=== PATIENT | female | born 1960 | race Caucasian/White ===

== ENCOUNTER → 2017-11-12 14:55 | Outpatient (CLI) | payer MEDICAID, SELFPAY ==
--- NOTE | 2017-11-12 15:19 | XR_ITS ---
XR shoulder LT min 2V HISTORY: ITS.REASON: LEFT SHOULDER PAIN ORDERING PHYSICIAN: Deepali Mojica PATIENT AGE: 57 years COMPARISON: None FINDINGS: There are mild osteoarthritic changes of the glenohumeral joint. No fracture or dislocation. No significant subacromial stenosis. No lytic or blastic change. IMPRESSION: Mild osteoarthritis of the left shoulder
--- NOTE | 2017-11-12 15:19 | XR_ITS ---
XR knee RT 3V HISTORY: Right knee pain ITS.REASON: KIM KNEE PAIN ORDERING PHYSICIAN: Deepali Mojica PATIENT AGE: 57 years COMPARISON: None FINDINGS: There is very slight decrease in the joint space medially and minimal spurring at the posterior patella. There is increased density in suprapatellar region consistent with knee joint effusion. No fracture or dislocation. No lytic or blastic change. IMPRESSION: Minimal osteoarthritic changes with suprapatellar effusion
--- NOTE | 2017-11-12 15:19 | XR_ITS ---
XR ankle RT min 3V HISTORY: ITS.REASON: RT ANKLE PAIN ORDERING PHYSICIAN: Deepali Mojica PATIENT AGE: 57 years COMPARISON: None FINDINGS: No fracture or dislocation. No lytic or blastic change. There is normal mineralization.. The joint spaces are well-preserved. No significant degenerative/arthritic changes. No erosive changes evident. IMPRESSION: Negative right ankle, no acute finding
--- NOTE | 2017-11-12 15:19 | XR_ITS ---
XR knee LT 3V HISTORY: Left knee pain ITS.REASON: KIM KNEE PAIN ORDERING PHYSICIAN: Deepali Mojica PATIENT AGE: 57 years COMPARISON: 07/20/2017 FINDINGS: No fracture or dislocation. No lytic or blastic change. Normal mineralization. No significant arthritic changes evident. No other significant findings. The small bowel now involving the distal femur IMPRESSION: Negative left Knee
--- NOTE | 2017-11-12 15:19 | XR_ITS ---
EXAM: XR lumbar spine min 4V HISTORY: ITS.REASON: LOW BACK PAIN ORDERING PHYSICIAN: Deepali Mojica PATIENT AGE: 57 years COMPARISON: None FINDINGS: Normal alignment. No fracture or dislocation. There are small anterior osteophytes at L2, L3, L4, and L5. The disc spaces are fairly well preserved except for slight decrease in the disc space at L5-S1. Mild facet hypertrophic changes are present at the lumbosacral junction. Multiple pelvic calcifications are present consistent with phleboliths. IMPRESSION: 1. No acute finding. 2. Mild lumbar spondylosis with osteophytosis and mild degenerative disc disease at L5-S1 with mild facet arthritic change
[2017-11-12 16:14] LABS: Alanine Aminotransferase 18 U/L (12-78); Albumin Level 3.1 gm/dL (3.4-5.0); Albumin/Globulin Ratio 0.7 (1.1-1.8); Alkaline Phosphatase 233 U/L (46-116); Aspartate Amino Transferase 18 U/L (15-37); Bilirubin,Total 0.2 mg/dL (0.2-1.0); Blood Urea Nitrogen 11 mg/dL (7-18); Calcium 8.8 mg/dL (8.5-10.1); Carbon Dioxide 35 mmol/L (21.0-32.0); Chloride 102 mmol/L (98-107); Chol/HDL Ratio 2.9 (1-3.5); Cholesterol 153 mg/dL (140-200); Creatinine,Serum 0.96 mg/dL (0.55-1.02); Estimated Glomerular Filt Rate 59 ml/min (>60); GFR (African American) 72 ML/MIN (>60); Globulin 4.4 gm/dl (1.3-3.2); Glucose 92 mg/dL (74-106); HDL Cholesterol 52 mg/dL (29-89); LDL Cholesterol 82 mg/dL (0-130); Sodium 140 mmol/L (136-145); Total Protein,Serum 7.5 gm/dL (6.4-8.2); Triglycerides 97 mg/dL (30-200); VLDL Cholesterol 19 mg/dL (0-40)
== END ==
PROVIDERS: Visit Provider Nurse Practitioner Family
DX: E11.9 Type 2 diabetes mellitus without complications (principal); M25.561 Pain in right knee; M25.562 Pain in left knee; M25.512 Pain in left shoulder; M25.571 Pain in right ankle and joints of right foot; M54.5 Low back pain
CPT/HCPCS: 36415; 72110; 73030; 73562; 73610; 80053; 80061; 83036

== ENCOUNTER → 2018-01-06 12:52 | Outpatient (CLI) | payer MEDICAID, SELFPAY ==
--- NOTE | 2018-01-06 12:55 | MR_ITS ---
MR knee RT wo con HISTORY: Right knee pain medial and lateral ITS.REASON: PAIN IN RIGHT KNEE, INJURY OF RIGHT KNEE ORDERING PHYSICIAN: Daren Sow MD PATIENT AGE: 57 years Comparison: 11/02/2017 TECHNIQUE: Standard multiplanar multiecho sequences are performed without contrast. FINDINGS: The cruciate ligaments are intact. The collateral ligaments, patellar tendon, and quadriceps tendon are intact. Grade 2 signal intensity involves the posterior horn of the medial meniscus and anterior horn of the lateral meniscus. No definite meniscal tear however is evident. There is thinning of the patellar cartilage with areas of decreased T1 and increased T2 signal in the subchondral region of the patella centrally and superiorly. There is a small knee joint effusion. There is also a cyst somewhat wedge-shaped area of abnormal signal intensity involving the lateral femoral condyle hypointense on T1 and hyperintense on T2. Measuring approximately 2.8 cm AP and 2.3 cm transverse with more extensive hypointensity in subchondral region posteriorly. There is mottled decrease in T1 signal and increased T2 signal involving the distal femur and proximal tibia consistent with red marrow replacement. IMPRESSION: 1. No evidence of internal derangement. 2. 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 Abnormal signal intensity of the lateral femoral condyle consistent with bone marrow edema. There may be some early osteochondritis at the subchondral region.
== END ==
PROVIDERS: Family Provider Internal Medicine Adolescent Medicine; PCP Internal Medicine Adolescent Medicine; Visit Provider Internal Medicine Adolescent Medicine
DX: M25.561 Pain in right knee (principal); S89.91XD Unspecified injury of right lower leg, subsequent encounter
CPT/HCPCS: 73721

== ENCOUNTER → 2018-07-23 15:03 | Outpatient (CLI) | payer MEDICAID, SELFPAY ==
[2018-07-23 15:59] LABS: Albumin Level 3.4 gm/dL (3.4-5.0); Blood Urea Nitrogen 8 mg/dL (7-18); Calcium 8.5 mg/dL (8.5-10.1); Chloride 97 mmol/L (98-107); Potassium 4.4 mmoL/L (3.5-5.1); Sodium 135 mmol/L (136-145)
[2018-07-23 16:09] LABS: Alanine Aminotransferase 23 U/L (12-78); Albumin/Globulin Ratio 0.8 (1.1-1.8); Alkaline Phosphatase 233 U/L (46-116); Anion Gap 15.4 mEq/L (5-15); Aspartate Amino Transferase 15 U/L (15-37); Bilirubin,Total 0.2 mg/dL (0.2-1.0); Carbon Dioxide 27 mmol/L (21.0-32.0); Chol/HDL Ratio 5.7 (1-3.5); Cholesterol 317 mg/dL (140-200); Creatinine,Serum 0.98 mg/dL (0.55-1.02); Estimated Glomerular Filt Rate 58 ml/min (>60); GFR (African American) 70 ML/MIN (>60); Globulin 4.2 gm/dl (1.3-3.2); Glucose 112 mg/dL (74-106); HDL Cholesterol 56 mg/dL (29-89); LDL Cholesterol 219 mg/dL (0-130); Total Protein,Serum 7.6 gm/dL (6.4-8.2); Triglycerides 208 mg/dL (30-200); VLDL Cholesterol 42 mg/dL (0-40)
[2018-07-23 16:42] LABS: Basophils # 0.1 K/mm3 (0-0.2); Basophils % 0.7 % (0.1-2.0); Eosinophils # 0.1 K/mm3 (0.0-0.4); Eosinophils % 0.7 % (0.1-12.0); Hematocrit 41.6 % (37.0-47.0); Hemoglobin 12.8 g/dL (12.2-16.2); Mean Corpuscular HGB Conc 30.7 g/dL (31.8-35.4); Mean Corpuscular Hemoglobin 25.9 pg (27.0-31.2); Mean Corpuscular Volume 84.6 fl (81-99); Mean Platelet Volume 7.1 fl (7.4-10.4); Monocytes # 0.3 K/mm3 (0.1-1.0); Monocytes % 3.5 % (1.7-9.3); Neutrophils # 5.3 K/mm3 (1.8-7.8); Platelet Count 512 K/mm3 (142-424); Red Blood Count 4.92 M/mm3 (4.20-5.40); White Blood Count 8.8 K/mm3 (4.8-10.8)
== END ==
PROVIDERS: Visit Provider Internal Medicine Adolescent Medicine
DX: E78.5 Hyperlipidemia, unspecified (principal); E11.9 Type 2 diabetes mellitus without complications
CPT/HCPCS: 36415; 80053; 80061; 85025

== ENCOUNTER 2018-12-28 16:28 | Outpatient (RCR) | payer MEDICAID, SELFPAY | END 2018-12-28 16:35 | disposition home or self-care (01) | LOC: PT 16:28 | PROVIDERS: Visit Provider Internal Medicine Adolescent Medicine | DX: M65.319 Trigger thumb, unspecified thumb (principal) ==

== ENCOUNTER → 2019-01-31 13:46 | Outpatient (CLI) | payer MEDICAID, SELFPAY ==
[2019-01-31 15:25] LABS: Hemoglobin A1C 6.5 % (0.0-7.0)
== END ==
PROVIDERS: Visit Provider Internal Medicine Adolescent Medicine
DX: E78.5 Hyperlipidemia, unspecified (principal); E11.9 Type 2 diabetes mellitus without complications
CPT/HCPCS: 36415; 83036

== ENCOUNTER → 2019-03-04 14:23 | Outpatient (CLI) | payer MEDICAID, SELFPAY ==
--- NOTE | 2019-03-04 14:29 | XR_ITS ---
XR knee RT 4V HISTORY: ITS.REASON: right knee pain ORDERING PHYSICIAN: Leona Kirkland MD PATIENT AGE: 58 years COMPARISON: 12/21/2018 FINDINGS: There are minimal osteoarthritic changes involving all 3 compartments. No fracture or dislocation. No lytic or blastic change. IMPRESSION: Minimal osteoarthritis
--- NOTE | 2019-03-04 14:29 | XR_ITS ---
XR knee LT 4V HISTORY: ITS.REASON: left knee pain ORDERING PHYSICIAN: Leona Kirkland MD PATIENT AGE: 58 years COMPARISON: None FINDINGS: There is slight decrease in the joint space medially and laterally with minimal osteophyte formation of the lateral aspect of the patella. No fracture or dislocation. No lytic or blastic change. Bone island is noted in the distal femur. Soft tissue calcification is present in the medial aspect of the left calf. IMPRESSION: Mild osteoarthritic change
== END ==
PROVIDERS: PCP Internal Medicine Adolescent Medicine; Visit Provider Orthopaedic Surgery
DX: M25.562 Pain in left knee (principal); M25.561 Pain in right knee
CPT/HCPCS: 73564

== ENCOUNTER → 2019-05-30 16:02 | Outpatient (CLI) | payer OTHER, SELFPAY ==
[2019-05-30 16:19] LABS: Basophils # 0.1 K/mm3 (0-0.2); Basophils % 0.6 % (0.1-2.0); Eosinophils # 0.1 K/mm3 (0.0-0.4); Eosinophils % 0.9 % (0.1-12.0); Hematocrit 41.4 % (37.0-47.0); Hemoglobin 12.3 g/dL (12.2-16.2); Lymphocytes # 2.8 K/mm3 (0.7-4.5); Lymphocytes % 25.1 % (10-50); Mean Corpuscular HGB Conc 29.7 g/dL (31.8-35.4); Mean Corpuscular Hemoglobin 27.2 pg (27.0-31.2); Mean Corpuscular Volume 91.6 fl (81-99); Mean Platelet Volume 7.1 fl (7.4-10.4); Monocytes # 0.4 K/mm3 (0.1-1.0); Monocytes % 3.8 % (1.7-9.3); Neutrophils # 7.7 K/mm3 (1.8-7.8); Neutrophils % 69.6 % (37.0-80.0); Platelet Count 501 K/mm3 (142-424); Red Blood Count 4.52 M/mm3 (4.20-5.40); Red Cell Distribution Width 17.2 % (11.5-17.5)
[2019-05-30 17:38] LABS: Hemoglobin A1C 5.9 % (0.0-7.0)
[2019-05-30 18:39] LABS: Alanine Aminotransferase 18 U/L (12-78); Albumin Level 3.4 gm/dL (3.4-5.0); Albumin/Globulin Ratio 0.9 (1.1-1.8); Alkaline Phosphatase 162 U/L (46-116); Anion Gap 14.6 mEq/L (5-15); Aspartate Amino Transferase 14 U/L (15-37); Bilirubin,Total 0.3 mg/dL (0.2-1.0); Blood Urea Nitrogen 11 mg/dL (7-18); Calcium 8.6 mg/dL (8.5-10.1); Carbon Dioxide 28 mmol/L (21.0-32.0); Chloride 98 mmol/L (98-107); Chol/HDL Ratio 3.5 (1-3.5); Cholesterol 223 mg/dL (140-200); Creatinine,Serum 0.93 mg/dL (0.55-1.02); Estimated Glomerular Filt Rate 61 ml/min (>60); GFR (African American) 74 ML/MIN (>60); Globulin 3.6 gm/dl (1.3-3.2); Glucose 103 mg/dL (74-106); HDL Cholesterol 63 mg/dL (29-89); LDL Cholesterol 131 mg/dL (0-130); Potassium 4.6 mmoL/L (3.5-5.1); Sodium 136 mmol/L (136-145); Thyroid Stimulating Hormone 1.04 uIU/ml (0.358-3.740); Triglycerides 147 mg/dL (30-200); VLDL Cholesterol 29 mg/dL (0-40)
== END ==
PROVIDERS: Visit Provider Internal Medicine Adolescent Medicine
DX: E78.5 Hyperlipidemia, unspecified (principal); E11.9 Type 2 diabetes mellitus without complications; Z79.84 Long term (current) use of oral hypoglycemic drugs
CPT/HCPCS: 36415; 80053; 80061; 83036; 84443; 85025

== ENCOUNTER 2019-09-16 12:43 | Outpatient (RCR) | payer OTHER, SELFPAY | END 2019-09-16 13:15 | disposition home or self-care (01) | LOC: OT 12:43 | PROVIDERS: Visit Provider Internal Medicine Adolescent Medicine | DX: M25.532 Pain in left wrist (principal) | CPT/HCPCS: 97763 ==

== ENCOUNTER → 2019-09-16 13:14 | Outpatient (CLI) | payer OTHER, SELFPAY ==
--- NOTE | 2019-09-16 13:20 | XR_ITS ---
PROCEDURE: XR ANKLE LT MIN 3V CLINICAL INDICATION: LT ANKLE PAIN COMPARISON: No exams were available for comparison FINDINGS: No fracture, dislocation, lytic change, or blastic change evident. No significant degenerative change IMPRESSION: No acute findings. Dictated by: Tony Jaeger MD 09/16/2019 17:06 Electronically signed by Tony Jaeger MD in [facility] 09/16/2019 17:06
--- NOTE | 2019-09-16 13:21 | XR_ITS ---
PROCEDURE: XR KNEE LT 4V CLINICAL INDICATION: Knee pain Knee pain and swelling COMPARISON: [id number] XR knee LT 3V from 11/12/2017 [id number] XR knee RT 3V from 11/12/2017 [id number] XR knee RT 3V from 12/21/2018 [id number] XR knee LT 3V from 12/21/2018 FINDINGS: No fracture or dislocation. No lytic or blastic change. There is normal mineralization. There are mild osteoarthritic changes the patellofemoral joint. Other findings:Bone islands are present in the distal femur IMPRESSION: Minimal osteoarthritic change patellofemoral Dictated by: Tony Jaeger MD 09/16/2019 17:06 Electronically signed by Tony Jaeger MD in [facility] 09/16/2019 17:06
--- NOTE | 2019-09-16 13:21 | XR_ITS ---
PROCEDURE: XR FOOT WT BEARING RT 3V CLINICAL INDICATION: pain COMPARISON: No exams were available for comparison FINDINGS: There are minimal hypertrophic changes at the distal aspect of the 1st metatarsal. No fracture or dislocation. No lytic or blastic change. Normal alignment. IMPRESSION: Minimal hypertrophic changes distal 1st metatarsal otherwise negative Dictated by: Tony Jaeger MD 09/16/2019 14:06 Electronically signed by Tony Jaeger MD in [facility] 09/16/2019 14:06
--- NOTE | 2019-09-16 13:21 | XR_ITS ---
PROCEDURE: XR FOOT WT BEARING LT 3V CLINICAL INDICATION: pain COMPARISON: No exams were available for comparison FINDINGS: No fracture or dislocation. No lytic or blastic change. There is normal mineralization. The joint spaces are well-preserved. No significant degenerative/arthritic changes. No erosive changes evident. Other findings:None. IMPRESSION: No acute findings. Dictated by: Tony Jaeger MD 09/16/2019 14:05 Electronically signed by Tony Jaeger MD in [facility] 09/16/2019 14:06
== END ==
PROVIDERS: PCP Internal Medicine Adolescent Medicine; Referring Provider Orthopaedic Surgery; Visit Provider Podiatrist
DX: M17.12 Unilateral primary osteoarthritis, left knee (principal); M79.672 Pain in left foot; M25.572 Pain in left ankle and joints of left foot; M79.671 Pain in right foot
CPT/HCPCS: 73564; 73610; 73630

== ENCOUNTER → 2019-10-21 10:55 | Outpatient (CLI) | payer OTHER, SELFPAY ==
--- NOTE | 2019-10-21 10:56 | MR_ITS ---
PROCEDURE: MR KNEE LT WO CON CLINICAL INDICATION: knee pain Left knee pain and instability with limited range of motion the COMPARISON: XR KNEE LT 4V from 09/16/2019 TECHNIQUE: Routine multiplanar multi echo sequences are performed without gadolinium enhancement. FINDINGS: The cruciate ligaments, collateral ligaments, quadriceps tendon, and patellar tendon are intact. The no evidence of meniscal tear. There is prominent thinning of the patellar cartilage. Decreased T1 and increased T2 signal is present within the central aspect of the patella extending from posterior to anterior in and oblique inferior direction. This may be related to osteochondrosis/osteochondritis. There is only minimal amount of fluid present in the knee joint. There is slight decrease in the joint space medially and laterally and at the patellofemoral joint with some minimal spurring along the intercondylar notch of the femur. IMPRESSION: 1. Osteoarthritic changes with chondromalacia patella with abnormal signal intensity of the patella which could be related to osteochondrosis/osteochondritis. 2. No evidence of internal derangement Dictated by: Tony Jaeger MD 10/22/2019 08:43 Electronically signed by Tony Jaeger MD in [facility] 10/22/2019 08:43
[2019-10-21 13:01] LABS: Basophils # 0.1 K/mm3 (0-0.2); Basophils % 0.8 % (0.1-2.0); Eosinophils # 0.1 K/mm3 (0.0-0.4); Eosinophils % 1.3 % (0.1-12.0); Hematocrit 39.4 % (37.0-47.0); Hemoglobin 12.9 g/dL (12.2-16.2); Lymphocytes # 2.5 K/mm3 (0.7-4.5); Lymphocytes % 26.7 % (10-50); Mean Corpuscular HGB Conc 32.8 g/dL (31.8-35.4); Mean Corpuscular Volume 88.5 fl (81-99); Mean Platelet Volume 7.1 fl (7.4-10.4); Monocytes # 0.3 K/mm3 (0.1-1.0); Monocytes % 3.2 % (1.7-9.3); Neutrophils # 6.4 K/mm3 (1.8-7.8); Platelet Count 442 K/mm3 (142-424); Red Blood Count 4.45 M/mm3 (4.20-5.40); White Blood Count 9.4 K/mm3 (4.8-10.8)
[2019-10-21 15:10] LABS: Alanine Aminotransferase 14 U/L (12-78); Albumin Level 3.6 g/dl (3.5-5.0); Albumin/Globulin Ratio 1.3 (1.1-1.8); Alkaline Phosphatase 140 U/L (38-126); Anion Gap 9.7 mEq/L (5-15); Aspartate Amino Transferase 20 U/L (14-36); Bilirubin,Total 0.2 mg/dl (0.2-1.3); Blood Urea Nitrogen 10 mg/dl (7-17); Calcium 9.1 mg/dl (8.4-10.2); Carbon Dioxide 29 mmol/L (22.0-30.0); Chloride 99 mmol/L (98-107); Chol/HDL Ratio 3.5 (1-3.5); Cholesterol 187 mg/dl (140-200); Estimated Glomerular Filt Rate 73 ml/min (>60); GFR (African American) 88 ML/MIN (>60); Globulin 2.7 g/dL (1.3-3.2); Glucose 97 mg/dl (74-100); HDL Cholesterol 53 mg/dl (40-60); Potassium 4.7 mmoL/L (3.5-5.1); Sodium 133 mmol/L (136-145); Total Protein,Serum 6.3 g/dl (6.3-8.2); Triglycerides 140 mg/dl (30-150); VLDL Cholesterol 28 mg/dL (0-40)
[2019-10-21 15:21] LABS: Direct LDL Cholesterol 101.12 mg/dL (100-129)
[2019-10-21 15:38] LABS: Thyroid Stimulating Hormone 0.55 uIU/mL (0.465-4.68)
[2019-10-21 16:30] LABS: Hemoglobin A1C 5.9 % (4.0-6.0)
== END ==
PROVIDERS: PCP Internal Medicine Adolescent Medicine; Visit Provider Orthopaedic Surgery
DX: M17.12 Unilateral primary osteoarthritis, left knee (principal)
CPT/HCPCS: 36415; 73721; 80053; 80061; 83036; 84443; 85025

== ENCOUNTER 2020-04-11 19:18 | Emergency (ER) | payer OTHER, SELFPAY ==
[2020-04-11 19:18] VITALS: BP 104/69; PULSE 66; RESP 16; TEMP 36.7; O2SAT 96; BMI 32.9
--- NOTE | 2020-04-11 19:36 | CT_ITS ---
PROCEDURE: CT ABDOMEN PELVIS WO CON CLINICAL INDICATION: LLQ pain and constipation COMPARISON: [facility]/O MRI-L-SPINE W/O from 12/09/2016 TECHNIQUE: Axial images obtained with sagittal and coronal reformats. All CT scans at the facility use one or more dose reduction, viz: automated exposure control, ma/kV adjustment per patient size (including targeted exams where dose is matched to indication, i.e. head), or iterative reconstruction technique. FINDINGS: LOWER THORAX: There is a nodular density along the right lung base measuring 7 mm. This is nonspecific and lies along the hemidiaphragm. There are minimal atelectatic changes in the lung bases. ABDOMEN & PELVIS: The liver, spleen adrenal glands, and pancreas have an unremarkable appearance. There are gallstones present. There are 2 nonobstructing left renal calculi along the lower pole of the left kidney measuring 2 and 3 mm. No intestinal obstruction or free air. No evidence of appendicitis. There is a mild amount of retained colonic feces. Small umbilical hernia containing fat. There is increased density involving the L2 vertebral body along its lower and left aspect which may represent a hemangioma. This is of undetermined significance. There are few bone islands within the pelvis and hips. IMPRESSION: 1. Cholelithiasis. 2. Nonobstructing left nephrolithiasis. 3. Constipation. 4. Nonspecific 7 mm flat like nodular density in the right lower lobe. Consider six-month follow-up to confirm stability Dictated by: Tony Jaeger MD 04/12/2020 05:11 Tony Jaeger MD in [place] 04/12/2020 05:11
--- NOTE | 2020-04-11 19:45 | HMH.EDGENADL ---
ED Disposition Clinical Impression: Constipation Qualifiers: Constipation type: unspecified constipation type Qualified Code(s): K59.00 - Constipation, unspecified Disposition: Home, Self-Care Condition on Discharge: Good Instructions: Acute Abdominal Pain Prescriptions: Sodium Phosphate,Throckmorton-Dibasic [Enema Ready To Use] 266 ml RC ONCE #1 enema Prescription Printed Magnesium Citrate [Magnesium Citrate 10oz Bottle] 10 ml PO ONCE #1 solution Prescription Printed Referrals: Radames Mena MD [Primary Care Provider] - - Critical Care Critical Care Time: No Attestation: On 04/11/20, the high probability of a clinically significant, sudden or life threatening deterioration of the following system(s) required my full and direct attention, intervention and personal management. The time I documented below is in addition to time spent performing reported procedures but includes the following listed in this critical care notation. Medical Decision Making - Nadeem Inquiry Pt receiving controlled substance: No Vital Signs: 04/11/20 19:18 04/11/20 20:11 04/11/20 20:32 Temperature 98.0 F Temperature Source Oral Pulse Rate [Left Radial] 66 77 70 Respiratory Rate 16 18 18 Blood Pressure [Right Arm] 104/69 L 109/64 L 117/78 Blood Pressure Mean [Right Arm] 80 79 91 Blood Pressure Source [Right Arm] Automatic Cuff Blood Pressure Position [Right Arm] Sitting 02 Sat by Pulse Oximetry 96 98 95 Oxygen Delivery Method Room Air Room Air - Lab Data Lab Results 04/11/20 19:45: Amylase 63 04/11/20 19:45: WBC 10.4, RBC 4.98, Hgb 14.4, Hct 43.3, MCV 86.9, MCH 28.8, MCHC 33.1, RDW 15.6, Plt Count 401, MPV 8.0, Neut % (Auto) 68.2, Lymph % (Auto) 27.0, Throckmorton % (Auto) 3.2, Eos % (Auto) 1.0, Baso % (Auto) 0.5, Neut # (Auto) 7.1, Lymph # (Auto) 2.8, Throckmorton # (Auto) 0.3, Eos # (Auto) 0.1, Baso # (Auto) 0.1 04/11/20 19:45: Sodium 139, Potassium 3.6, Chloride 102, Carbon Dioxide 30, Anion Gap 10.6, BUN 11, Creatinine 1.00, Estimated Creat Clear 76, Estimated GFR 56 L, Est GFR ( Amer) 68, Glucose 135 H, Calcium 9.5, Total Bilirubin 0.3, AST 32, ALT 21, Alkaline Phosphatase 145 H, Total Protein 7.5, Albumin 4.1, Globulin 3.4 H, Albumin/Globulin Ratio 1.2, Lipase 82 Result diagrams: 04/11/20 19:45 04/11/20 19:45 Orders (Tests/Meds): ED MEDICATIONS Generic Name Dose Route Start Last Admin Trade Name Freq PRN Reason Stop Dose Admin Sodium Chloride 1,000 mls @ 999 mls/hr 04/11/20 19:45 04/11/20 19:42 Sod Chlor 0.9% 1000ml Bag IV 04/11/20 20:45 999 mls/hr .Q1H1M JORGE Administration Discontinued Medications Generic Name Dose Route Start Last Admin Trade Name Freq PRN Reason Stop Dose Admin Ketorolac Tromethamine 30 mg 04/11/20 20:05 04/11/20 20:07 Toradol 30mg/Ml Vial IV 04/11/20 20:06 30 mg ONCE ONE Administration Ondansetron HCl 4 mg 04/11/20 19:39 04/11/20 19:42 Zofran 4mg/2ml Vial IV 04/11/20 19:40 4 mg ONCE ONE Administration ORDERS Category Date Time Status CT abdomen pelvis wo con Stat Cat Scan 04/11/20 19:36 Taken Urinalysis and Microscopic Stat Lab 04/11/20 19:36 Ordered Medical Decision Narrative: In summary patient presents for obstipation. Patient has had history of abdominal surgeries, risk of adhesions causing small bowel obstruction is high. Patient is also on significant amount of medications which may cause stroke paresis. Patient does have focal abdominal tenderness to palpation right lower quadrant, appendicitis is also possibility. Patient had basic labs drawn, CBC, CMP, lipase, was given 1 L fluids, CT scan with IV contrast was ordered. On repeat assessment, patient CT scan significant for constipation, patient did not want intervention performed in the ER, patient requesting enema prescription at discharge. Patient reported normal exam significantly improved. Patient labs nonactionable. Patient discharged home, follow-up with primary care doctor
[2020-04-11 19:54] LABS: Basophils # 0.1 K/mm3 (0-0.2); Basophils % 0.5 % (0.1-2.0); Eosinophils # 0.1 K/mm3 (0.0-0.4); Hematocrit 43.3 % (37.0-47.0); Hemoglobin 14.4 g/dL (12.2-16.2); Lymphocytes # 2.8 K/mm3 (0.7-4.5); Mean Corpuscular HGB Conc 33.1 g/dL (31.8-35.4); Mean Corpuscular Hemoglobin 28.8 pg (27.0-31.2); Mean Corpuscular Volume 86.9 fl (81-99); Monocytes # 0.3 K/mm3 (0.1-1.0); Monocytes % 3.2 % (1.7-9.3); Neutrophils # 7.1 K/mm3 (1.8-7.8); Neutrophils % 68.2 % (37.0-80.0); Platelet Count 401 K/mm3 (142-424); Red Blood Count 4.98 M/mm3 (4.20-5.40); Red Cell Distribution Width 15.6 % (11.5-17.5); White Blood Count 10.4 K/mm3 (4.8-10.8)
[2020-04-11 20:02] LABS: Amylase 63 U/L (30-110)
[2020-04-11 20:11] VITALS: BP 109/64; PULSE 77; RESP 18; O2SAT 98
[2020-04-11 20:12] LABS: Chloride 102 mmol/L (98-107); Potassium 3.6 mmoL/L (3.5-5.1); Sodium 139 mmol/L (136-145)
[2020-04-11 20:15] LABS: Alanine Aminotransferase 21 U/L (12-78); Albumin Level 4.1 g/dl (3.5-5.0); Albumin/Globulin Ratio 1.2 (1.1-1.8); Alkaline Phosphatase 145 U/L (38-126); Anion Gap 10.6 mEq/L (5-15); Aspartate Amino Transferase 32 U/L (14-36); Bilirubin,Total 0.3 mg/dl (0.2-1.3); Blood Urea Nitrogen 11 mg/dl (7-17); Calcium 9.5 mg/dl (8.4-10.2); Carbon Dioxide 30 mmol/L (22.0-30.0); Creatinine Clearance Estimated 76 mL/min (50-200); Estimated Glomerular Filt Rate 56 ml/min (>60); GFR (African American) 68 ML/MIN (>60); Globulin 3.4 g/dL (1.3-3.2); Glucose 135 mg/dl (74-100); Lipase 82 U/L (23-300); Total Protein,Serum 7.5 g/dl (6.3-8.2)
[2020-04-11 20:32] VITALS: BP 117/78; PULSE 70; RESP 18; O2SAT 95
[2020-04-11 21:58] VITALS: BP 118/76; PULSE 72; RESP 14; TEMP 36.7; O2SAT 97
== END 2020-04-11 22:00 | disposition home or self-care (01) ==
PROVIDERS: Emergency Provider Emergency Medicine; PCP Internal Medicine Adolescent Medicine
DX: K59.00 Constipation, unspecified (principal); E11.9 Type 2 diabetes mellitus without complications; E78.5 Hyperlipidemia, unspecified; M79.7 Fibromyalgia; F17.210 Nicotine dependence, cigarettes, uncomplicated; Z88.8 Allergy status to other drugs, medicaments and biological substances; Z79.899 Other long term (current) drug therapy
CPT/HCPCS: 74176; 80053; 82150; 83690; 85025; 96365; 96375; 99283; J2405

== ENCOUNTER → 2020-04-30 13:30 | Outpatient (CLI) | payer OTHER, SELFPAY ==
--- NOTE | 2020-04-30 13:35 | XR_ITS ---
PROCEDURE: XR ELBOW RT MIN 3V CLINICAL INDICATION: R ELBOW PAIN COMPARISON: No exams were available for comparison FINDINGS: No obvious fracture or dislocation. Osteoarthritic changes are present at the elbow joint. No displaced fat pad. Bony hypertrophy is present at the radial neck and coracoid process. Other findings:None. IMPRESSION: No acute fracture. Osteoarthritis Dictated by: Tony Jaeger MD 04/30/2020 14:05 Tony Jaeger MD in [place] 04/30/2020 14:05
== END ==
PROVIDERS: PCP Internal Medicine Adolescent Medicine; Visit Provider Internal Medicine Adolescent Medicine
DX: M25.521 Pain in right elbow (principal)
CPT/HCPCS: 73080

== ENCOUNTER 2021-05-28 11:19 | Outpatient (RCR) | payer OTHER, SELFPAY | END 2021-05-28 12:00 | disposition home or self-care (01) | LOC: OT 11:19 | PROVIDERS: Visit Provider Internal Medicine Adolescent Medicine | DX: M79.642 Pain in left hand (principal); M79.641 Pain in right hand | CPT/HCPCS: 97763 ==

== ENCOUNTER → 2021-11-05 12:17 | Outpatient (CLI) | payer OTHER, SELFPAY ==
[2021-11-05 12:43] LABS: Basophils # 0.1 K/mm3 (0-0.2); Basophils % 1.1 % (0.1-2.0); Eosinophils # 0.1 K/mm3 (0.0-0.4); Eosinophils % 1.4 % (0.1-12.0); Hematocrit 42.5 % (37.0-47.0); Hemoglobin 13.5 g/dL (12.2-16.2); Lymphocytes # 3.3 K/mm3 (0.7-4.5); Lymphocytes % 33.7 % (10-50); Mean Corpuscular HGB Conc 31.9 g/dL (31.8-35.4); Mean Corpuscular Hemoglobin 29.3 pg (27.0-31.2); Mean Corpuscular Volume 91.9 fl (81-99); Mean Platelet Volume 7.7 fl (7.4-10.4); Monocytes # 0.4 K/mm3 (0.1-1.0); Monocytes % 3.6 % (1.7-9.3); Neutrophils % 60.2 % (37.0-80.0); Platelet Count 350 K/mm3 (142-424); Red Blood Count 4.62 M/mm3 (4.20-5.40); Red Cell Distribution Width 14.4 % (11.5-17.5); White Blood Count 9.9 K/mm3 (4.8-10.8)
[2021-11-05 12:54] LABS: Hemoglobin A1C 5.9 % (4.0-6.0)
[2021-11-05 13:59] LABS: Alanine Aminotransferase 19 U/L (12-78); Albumin Level 3.9 g/dl (3.5-5.0); Albumin/Globulin Ratio 1.5 (1.1-1.8); Alkaline Phosphatase 135 U/L (38-126); Anion Gap 7.2 mEq/L (5-15); Aspartate Amino Transferase 26 U/L (14-36); Bilirubin,Total 0.4 mg/dl (0.2-1.3); Blood Urea Nitrogen 12 mg/dl (7-17); Calcium 8.5 mg/dl (8.4-10.2); Carbon Dioxide 31 mmol/L (22.0-30.0); Chloride 102 mmol/L (98-107); Estimated Glomerular Filt Rate 63 ml/min (>60); GFR (African American) 77 ML/MIN (>60); Globulin 2.6 g/dL (1.3-3.2); Glucose 117 mg/dl (74-100); Potassium 4.2 mmoL/L (3.5-5.1); Sodium 136 mmol/L (136-145); Total Protein,Serum 6.5 g/dl (6.3-8.2)
== END ==
PROVIDERS: Visit Provider Internal Medicine Adolescent Medicine
DX: E11.9 Type 2 diabetes mellitus without complications (principal); R23.8 Other skin changes; Z79.84 Long term (current) use of oral hypoglycemic drugs
CPT/HCPCS: 36415; 80053; 83036; 85025

== ENCOUNTER → 2022-03-12 10:01 | Outpatient (CLI) | payer OTHER, SELFPAY ==
--- NOTE | 2022-03-12 10:06 | XR_ITS ---
PROCEDURE INFORMATION: Exam: XR Left Hand Exam date and time: 03/12/2022 10:22 AM Age: 61 years old Clinical indication: Pain; Hand; Left; Additional info: Hand pain TECHNIQUE: Imaging protocol: Radiologic exam of the Left hand. Views: 3 or more views. COMPARISON: CR [id number] XR hand LT min 3V 12/21/2018 2:30 PM FINDINGS: Bones/joints: No evidence of acute displaced cortical disruption or dislocation. Diffuse bone demineralization. Osteophytosis and eburnation of the articulating surfaces of the wrist and hand, most notably at the junction of the 1st metacarpal and 1st carpal. Soft tissues: No radiopaque foreign object or localized soft tissue swelling. IMPRESSION: 1. Osteoarthritis. 2. Osteopenia. 3. No acute fracture is identified.
--- NOTE | 2022-03-12 10:06 | XR_ITS ---
PROCEDURE INFORMATION: Exam: XR Right Hand Exam date and time: 03/12/2022 10:22 AM Age: 61 years old Clinical indication: Pain; Hand; Right; Additional info: Hand pain TECHNIQUE: Imaging protocol: Radiologic exam of the Right hand. Views: 3 or more views. COMPARISON: CR XR ELBOW RT MIN 3V 04/30/2020 1:37 PM FINDINGS: Bones/joints: Loss of joint space, osteophytosis and eburnation at the articulating surfaces of the wrist and hand most notably at the junction of the greater multangular and 1st metacarpal. Diffuse bone demineralization. Soft tissues: Normal. IMPRESSION: 1. Osteoarthritis. 2. Osteopenia.
== END ==
PROVIDERS: PCP Internal Medicine Adolescent Medicine; Visit Provider Orthopaedic Surgery
DX: M79.642 Pain in left hand (principal); M79.641 Pain in right hand
CPT/HCPCS: 73130

== ENCOUNTER 2022-10-14 17:50 | Emergency (ER) | payer OTHER, SELFPAY ==
[2022-10-14 18:04] VITALS: BMI 25.6
--- NOTE | 2022-10-14 18:05 | XR_ITS ---
PROCEDURE INFORMATION: Exam: XR Right Elbow Exam date and time: 10/14/2022 6:03 PM Age: 62 years old Clinical indication: Pain; Elbow; Left; Additional info: Injury TECHNIQUE: Imaging protocol: Radiologic exam of the right elbow. Views: 3 or more views. COMPARISON: CR XR ELBOW RT MIN 3V 04/30/2020 1:37 PM FINDINGS: Bones/joints: No visible fracture or dislocation. Moderate degenerative changes of the radiocapitellar joint. No joint effusion Soft tissues: Normal. IMPRESSION: No visible fracture or dislocation.
[2022-10-14 18:20] VITALS: BP 120/87; PULSE 79; RESP 18; TEMP 36.8; O2SAT 95; BMI 28.5
--- NOTE | 2022-10-14 18:43 | EXP.UTC ---
Discharge Plan Disposition Patient Disposition: Home, Self-Care Condition: Good Prescriptions Prescriptions: New bacitracin 500 unit/gram ointment 1 applic topical Q8H 10 Days Qty: 28 0RF Rx Instructions: apply to abrasion on right elbow No Action pravastatin 20 mg tablet 20 mg PO DAILY Ventolin HFA 90 mcg/actuation HFA aerosol inhaler 2 puff INHALATION Q4-6H PRN (Reason: COPD ) fluoxetine 40 mg capsule 40 mg PO DAILY bisacodyl [Dulcolax (bisacodyl)] 5 mg tablet,delayed release (DR/EC) 5 mg PO QHS hydroxyzine pamoate 25 mg capsule 25 mg PO TID guaifenesin [Mucinex] 600 mg tablet extended release 12hr 600 mg PO BID PRN (Reason: mucus) tizanidine 4 mg capsule 4 mg PO QHS PRN (Reason: muscle spasm ) gabapentin 800 mg tablet 800 mg PO QHS loratadine 10 mg tablet 10 mg PO DAILY sodium phosphates 133 ML enema 266 ml RC ONCE Qty: 1 1RF magnesium citrate 1 BOT bottle 10 ml PO ONCE Qty: 1 0RF Referrals Follow up/Referrals: Eitan Gordon JR, MD [Physician] - See instructions Campos Wong MD [Primary Care Provider] - See instructions Activity Restrictions/Add. Instructions Additional Instructions/Restrictions: Sling to right arm for 3-5 days Follow up with your Family Doctor if no improvment or any worsening of symptoms Call Orthopedics for appointment if pain continues Straight to ER if any life threatening symptoms Clinical Impressions Clinical Impression: Contusion of elbow Qualifiers: Encounter type: initial encounter Laterality: right Qualified Code(s): S50.01XA - Contusion of right elbow, initial encounter Instructions Patient Instructions: How to Use a Sling, Acetaminophen (Alternative Therapy), How To Perform RICE (Rest, Ice, Compress, Elevate) Discharge ED Provider: Cherri Astorga [facility] [place] H[place] General Stated complaint: [id number] right elbow,ear pain Mode of Arrival: Ambulatory Source of Information: Patient Limitations: No Limitations Time Seen by Provider: 10/14/22 18:43 Description of Symptoms (Recalled from Triage Doc. by RN): PATIENT C/O RIGHT ELBOW PAIN AFTER FALLING AND LANDING ON IT. 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 and she fell and landed on her right elbow States that she has a scratch on her elbow and has been having pain in it with movement ever since States that she also has a piece of cotton stuck in her left ear that is pushed back in there that she cannot get out wanting that looked at too Related Data Home Medications Medication Instructions Recorded Confirmed albuterol sulfate 90 mcg/actuation 2 puff inhalation Q4-6H PRN COPD 03/04/19 04/11/20 aerosol inhaler (Ventolin HFA) bisacodyl 5 mg tablet,delayed 5 mg PO QHS constipation 03/04/19 04/11/20 release (Dulcolax (bisacodyl)) fluoxetine 40 mg capsule 40 mg PO DAILY mood 03/04/19 04/11/20 gabapentin 800 mg tablet 800 mg PO QHS neuropathy 03/04/19 04/11/20 guaifenesin 600 mg tablet, 600 mg PO BID PRN mucus 03/04/19 04/11/20 extended release 12 hr (Mucinex) hydroxyzine pamoate 25 mg capsule 25 mg PO TID anxiety 03/04/19 04/11/20 loratadine 10 mg tablet 10 mg PO DAILY allrgies 03/04/19 04/11/20 pravastatin 20 mg tablet 20 mg PO DAILY Cholesterol 03/04/19 04/11/20 tizanidine 4 mg capsule 4 mg PO QHS PRN muscle spasm 03/04/19 04/11/20 Previous Rx's Medication Instructions Recorded magnesium citrate 10 ml PO ONCE ##1 04/11/20 sodium phosphates 19 gram-7 266 ml RC ONCE ##1 04/11/20 gram/118 mL enema bacitracin 500 unit/gram topical 1 applic topical Q8H 10 days #28 10/14/
[2022-10-14 19:25] VITALS: BP 120/87; PULSE 79; RESP 18; TEMP 36.8; O2SAT 95
== END 2022-10-14 19:36 | disposition home or self-care (01) ==
PROVIDERS: Emergency Provider Nurse Practitioner; PCP Emergency Medicine
DX: S50.01XA Contusion of right elbow, initial encounter (principal); W19.XXXA Unspecified fall, initial encounter
CPT/HCPCS: 73080; 99212; 99213; G0463

== ENCOUNTER 2023-07-09 00:56 | Emergency (ER) | payer MEDICARE, OTHER, SELFPAY ==
[2023-07-09] VITALS (9 sets, daily range): BP systolic 97–140; BP diastolic 43–82; PULSE 56–70; RESP 12–20; TEMP 36.6; O2SAT 96–100; BMI 26.5
--- NOTE | 2023-07-09 01:22 | ED_ITS ---
Discharge Plan Disposition Patient Disposition: Home, Self-Care Chief Complaint: Anxiety Prescriptions Prescriptions: No Action pravastatin 20 mg tablet 20 mg PO DAILY Ventolin HFA 90 mcg/actuation HFA aerosol inhaler 2 puff INHALATION Q4-6H PRN (Reason: COPD ) fluoxetine 40 mg capsule 40 mg PO DAILY bisacodyl [Dulcolax (bisacodyl)] 5 mg tablet,delayed release (DR/EC) 5 mg PO QHS hydroxyzine pamoate 25 mg capsule 25 mg PO TID guaifenesin [Mucinex] 600 mg tablet extended release 12hr 600 mg PO BID PRN (Reason: mucus) tizanidine 4 mg capsule 4 mg PO QHS PRN (Reason: muscle spasm ) gabapentin 800 mg tablet 800 mg PO QHS loratadine 10 mg tablet 10 mg PO DAILY sodium phosphates 133 ML enema 266 ml RC ONCE Qty: 1 1RF magnesium citrate 1 BOT bottle 10 ml PO ONCE Qty: 1 0RF bacitracin 500 unit/gram ointment 1 applic topical Q8H 10 Days Qty: 28 0RF Rx Instructions: apply to abrasion on right elbow Referrals Follow up/Referrals: Provider,Referral, MD [Primary Care Provider] - See instructions Activity Restrictions/Add. Instructions Additional Instructions/Restrictions: Call your family doctor to establish care for this visit to the emergency department and schedule follow-up within 48 hours to ensure improvement. If you have any worsening of your condition or any other concerning signs or symptoms, return to the emergency department or your primary care doctor for further evaluation. Clinical Impressions Clinical Impression: Panic attack Instructions Patient Instructions: DI for Altered Mental Status Discharge ED Provider: [facility] HPI General Chief complaint: Anxiety Stated complaint: AMS Time Seen by Provider: 07/09/23 01:03 Mode of Arrival: EMS Limitations: No Limitations Description of Symptoms (Recalled from ER Triage Doc. by RN): Pt states she was walking to family members house tonight when she had a panic attack, went blank , and couldn't find her way. Pt then flagged down police stenographer stating she thought she had a stroke, [employer] called EMS. Pt states she has not slept in 5 days. Pt denies SI/HI. Pt reports multiple life stressors. Pt states Dr Wong has prescribed her Clonopin for approx 15 years, and it is not working anymore. Pt states I don't want pain pills. History of Present Illness HPI narrative: 63-year-old female with history of anxiety and chronic joint pain secondary to osteoarthritis presenting with panic attack. Patient states that she was walking around in the street just prior to arrival. She was thinking about all of the family members she lost in the past year, including daughter, father, among others. She started having a panic attack and states she distressed she could not remember where she was going or how to get home. She remembers the entire incident. Denies any weakness, chest pain, nausea or vomiting, hallucinations, SI or HI. Patient states that she has not been able to sleep and for 5 nights because of thoughts of loved ones she has lost and is hoping for something to help her sleep. Related Data Home Medications Medication Instructions Recorded Confirmed albuterol sulfate 90 mcg/actuation 2 puff inhalation Q4-6H PRN COPD 03/04/19 04/11/20 aerosol inhaler (Ventolin HFA) bisacodyl 5 mg tablet,delayed 5 mg PO QHS constipation 03/04/19 04/11/20 release (Dulcolax (bisacodyl)) fluoxetine 40 mg capsule 40 mg PO DAILY mood 03/04/19 04/11/20 gabapentin 800 mg tablet 800 mg PO QHS neuropathy 03/04/19 04/11/20 guaifenesin 600 mg tablet, 600 mg PO BID PRN mucus 03/04/19 04/11/20 extended release 12 hr (Mucinex) hydroxyzine pamoate 25 mg capsule 25 mg PO TID anxiety 03/04/19 04/11/20 loratadine 10 mg tablet 10 mg PO DAILY allrgies 03/04/19 04/11/20 pravastatin 20 mg tablet 20 mg PO DAILY Cholesterol 03/04/19 04/11/20 tizanidine 4 mg capsule 4 mg PO QHS PRN muscle spasm 03/04/19 04/11/20 Previous Rx's Medication Instructions Recorded magnesium citrate 10 ml PO ONCE ##1 04/11/20 sodium phosphates 19 gram-7 266 ml RC ONCE ##1 04/11/20 gram/118 mL enema bacitracin 500 unit/gram topical 1 applic topical Q8H 10 days #28 10/14/22 ointment grams Allergies Allergy/AdvReac Type Severity Reaction Status Date / Time aspirin [ASPIRIN] Allergy Unknown UNKNOWN Verified 04/11/20 20:12 codeine [CODEINE] Allergy Unknown NA-NAUSEA/V Verified 04/11/20 20:12 OMITING cyclobenzaprine Allergy Unknown [place] Verified 04/11/20 20:12 [From FLEXERIL] diclofenac [DICLOFENAC] Allergy Unknown ITCHING Verified 04/11/20 20:12 escitalopram [From LEXAPRO] Allergy Unknown UNKNOWN Verified 04/11/20 20:12 ibuprofen [IBUPROFEN] Allergy Unknown UNKNOWN Verified 04/11/20 20:12 tramadol [TRAMADOL] Allergy Unknown UNKNOWN Verified 04/11/20 20:12 venlafaxine [VENLAFAXINE] Allergy Unknown THROAT Verified 04/11/20 20:12 [facility] Disclaimer: The information contained in this section may have been updated after the patient was seen, as this information can be updated by other users. Social History Smoking Status: Current every day smoker tobacco type: cigarettes packs per day: 1 alcohol intake: never current occupational status: other Travel in the last 8 weeks: None ROS Obtained: Yes All systems reviewed & no additional complaints except as documented Physical Exam General General appearance: alert and in no apparent distress Head Head exam: atraumatic and normocephalic Eye Eye exam: Present normal appearance, PERRL and EOMI ENT ENT exam: Present mucous membranes moist and other (edentulous) Neck Neck exam: Present normal inspection, full ROM and trachea midline Respiratory Respiratory exam: Present normal lung sounds bilaterally; Absent respiratory distress, wheezes, stridor, accessory muscle use or prolonged expiratory phase Cardiovascular Cardiovascular exam: Present regular rate and normal rhythm Abdominal Exam Abdominal exam: Present soft; Absent distention, tenderness, guarding, rebound, rigidity or normal bowel sounds Extremities Exam Extremities exam: Present edema (1+ BL LE pitting) and other (Right shoulder pain with range of motion. Patient has bruising on right forearm she is compl aining about. States that she bumped it on furniture couple days prior.) Neurological Exam Neurological exam: Present alert, oriented X3, CN II-XII intact and normal gait; Absent motor sensory deficit Skin Skin exam: Present warm and dry; Absent diaphoresis or erythema Medical Decision Making Medical Records Medical records reviewed: Yes I reviewed the patient's medical records. Nadeem Inquiry Pt receiving controlled substance: No Nadeem was queried for this patient: No Vital Signs: 07/09/23 01:05 07/09/23 01:01 Temperature 97.8 F Temperature Source Oral Pulse Rate 70 Pulse Rate [Apical] 70 Respiratory Rate 20 14 Blood Pressure 140/82 Blood Pressure [Right Arm] 140/82 Blood Pressure Mean 101 Blood Pressure Mean [Right Arm] 101 Blood Pressure Source [Right Arm] Automatic Cuff 02 Sat by Pulse Oximetry 96 97 Oxygen Delivery Method Room Air Room Air Lab Data Lab Results 07/09/23 01:20: WBC 8.1, RBC 4.86, Hgb 14.6, Hct 43.9, MCV 90.5, MCH 30.0, MCHC 33.2, RDW 14.5, Plt Count 287, MPV 7.9, Neut % (Auto) 48.8, Lymph % (Auto) 43.2, [place] % (Auto) 5.0, Eos % (Auto) 1.9, Baso % (Auto) 1.2, Neut # (Auto) 4.0, Lymph # (Auto) 3.5, [place] # (Auto) 0.4, Eos # (Auto) 0.2, Baso # (Auto) 0.1, Sodium 137, Potassium 3.6, Chloride 101, Carbon Dioxide 30, Anion Gap 9.6, BUN 20 H, Creatinine 1.10 H, Estimated Creat Clear 53, Estimated GFR 50 L, Est GFR ( Amer) 60, Glucose 109 H, Calcium 8.8, Total Bilirubin 0.4, AST 28, ALT 19, Alkaline Phosphatase 88, Total Protein 7.3, Albumin 4.4, Globulin 2.9, Albumin/Globulin Ratio 1.5, Thyroxine (T4) 8.5 07/09/23 01:33: Urine Color Yellow, Urine Appearance Clear, Urine pH 6.0, Ur Specific [place] 1.020, Urine Protein Negative, Urine Glucose (UA) Negative, Urine Ketones Trace, Urine Blood Negative, Urine Nitrate Negative, Urine Bilirubin 1+ A, Urine Urobilinogen 1.0, Ur Leukocyte Esterase 1+ A, Urine RBC None, Urine WBC 3-5, Ur Squamous Epith Cells Occasional, Urine Opiates Screen Negative, Urine Methadone Screen Negative, Ur Barbituates Screen Negative, Ur Phencyclidine Scrn Negative, Ur Amphetamines Screen Negative, U Benzodiazepines Scrn Positive H, Urine Cocaine Screen Negative, U Marijuana (THC) Screen Negative 07/09/23 01:20 07/09/23 01:20 Orders (Tests/Meds): ED MEDICATIONS Generic Name Dose Route Start Last Admin Trade Name Freq PRN Reason Stop Dose Admin Sodium Chloride 1,000 mls @ 999 mls/hr 07/09/23 01:19 07/09/23 01:33 Sod Chlor 0.9% 1000ml Bag IV 07/09/23 02:19 999 mls/hr .Q1H1M ONE Administration Discontinued Medications Generic Name Dose Route Start Last Admin Trade Name Freq PRN Reason Stop Dose Admin Acetaminophen 1,000 mg 07/09/23 01:19 07/09/23 01:34 Acetaminophen 1,000mg/100ml Vial IV 07/09/23 01:20 1,000 mg ONCE ONE Administration Diphenhydramine HCl 25 mg 07/09/23 01:19 07/09/23 01:38 Diphenhydramine 50mg/Ml Vial IV 07/09/23 01:20 25 mg ONCE ONE Administration Ketorolac Tromethamine 15 mg 07/09/23 01:19 07/09/23 01:35 Ketorolac 30mg/Ml Vial IV 07/09/23 01:20 15 mg ONCE ONE Administration Prochlorperazine Edisylate 10 mg 07/09/23 01:19 07/09/23 01:39 Prochlorperazine 10mg/2ml Vial IV 07/09/23 01:20 10 mg ONCE ONE Administration ORDERS Category Date Time Status CBC w/Auto Diff [Complete Blood Count Auto Diff] Stat Lab 07/09/23 01:20 Completed CMP [Comprehensive Metabolic Panel] Stat Lab 07/09/23 01:20 Results T4 (Thyroxine) Stat Lab 07/09/23 01:20 Results TSH [Thyroid Stimulating Hormone] Stat Lab 07/09/23 01:20 Results UA [Urinalysis and Microscopic] Stat Lab 07/09/23 01:33 Completed UDS [Drug Screen,Urine] Stat Lab 07/09/23 01:33 Completed Urine Culture Stat Micro 07/09/23 01:33 Received Medical Decision Narrative: 63-year-old female with history of anxiety and chronic joint pain secondary to osteoarthritis presenting with panic attack. Patient states that she was walking around in the street just prior to arrival. She was thinking about all of the family members she lost in the past year, including daughter, father, among others. She started having a panic attack and states she distressed she could not remember where she was going or how to get home. She remembers the entire incident. Denies any weakness, chest pain, nausea or vomiting, hallucinations, SI or HI. Patient states that she has not been able to sleep and for 5 nights because of thoughts of loved ones she has lost and is hoping for something to help her sleep. Having headache due to sleeplessness. History was obtained via conversation with patient, EMS. On arrival, patient hemodynamically stable, alert, oriented x4, appropriate, GCS 15, moving all extremities spontaneously, pupils equal and reactive to light. Full physical exam performed and significant for chronically ill-appearing woman in no acute distress. Not responding to internal stimuli, appropriate. Denying SI/HI. Edentulous, smells of tobacco. Lungs clear to auscultation, patient no ntachycardic. Bilateral lower extremity 1+ pitting edema. Abdomen soft, nontender. Patient has chronic joint pain, nothing acute. Neurologically intact and symmetric. Differential includes anxiety, panic, metabolic, endocrinologic, intoxication, withdrawal, among others. Patient was given fluid bolus, Compazine, Benadryl, Toradol, acetaminophen IV for symptomatic management and correction of underlying abnormalities. Workup independently interpreted and significant for nonactionable CBC or chemistry. Thyroid studies negative. UDS positive for benzodiazepines. UA without concern for UTI. On reevaluation, patient sleeping comfortably. Given patient presentation, workup, history, this most likely represents panic attack and acute anxiety. Because patient at baseline without signs or symptoms of clinical decompensation, deemed appropriate for discharge. Results were relayed to patient who voiced understanding and were agreeable to outpatient management and follow up. At the time of discharge the patient was hemodynamically stable, tolerating PO, voiding spontaneously, normal bowel function, mobilizing appropriately. Critical Care Critical Care Time Critical Care Time: No
[2023-07-09] MEDS: 0.9 % SODIUM CHLORIDE 1000ML 1,000 ML 999 ML IV (01:33)
[2023-07-09] MEDS: ACETAMINOPHEN 1,000MG/100ML VIAL 1000 MG IV (01:34)
[2023-07-09] MEDS: KETOROLAC 30MG/ML VIAL 15 MG IV (01:35)
[2023-07-09 01:37] LABS: Microscopic, Urine URINE MICROSCOPIC (MICROSCOPIC)
[2023-07-09 01:37] LABS: Chloride 101 mmol/L (98-107)
[2023-07-09 01:38] LABS: Potassium 3.6 mmoL/L (3.5-5.1); Sodium 137 mmol/L (136-145)
[2023-07-09 01:38] LABS: Appearance,Urine CLEAR (Clear); Blood, Urine Negative (Negative); Color,Urine YELLOW (Yellow); Glucose,Urine (UA) Negative (Negative); Ketones,Urine TRACE (Negative); Leukocyte Esterase,Urine 1+ (Negative); Nitrate,Urine Negative (Negative); Protein,Urine Negative (Negative)
[2023-07-09] MEDS: diphenhydrAMINE 50MG/ML VIAL 25 MG IV (01:38)
[2023-07-09] MEDS: PROCHLORPERAZINE 10MG/2ML VIAL 10 MG IV (01:39)
[2023-07-09 01:40] LABS: Alanine Aminotransferase 19 U/L (12-78); Alkaline Phosphatase 88 U/L (38-126); Aspartate Amino Transferase 28 U/L (14-36); Bilirubin,Total 0.4 mg/dl (0.2-1.3); Blood Urea Nitrogen 20 mg/dl (7-17); Creatinine Clearance Estimated 53 mL/min (50-200); Estimated Glomerular Filt Rate 50 ml/min (>60); GFR (African American) 60 ML/MIN (>60)
[2023-07-09 01:40] LABS: Bilirubin,Urine 1+ (Negative)
[2023-07-09 01:41] LABS: Albumin Level 4.4 g/dl (3.5-5.0); Albumin/Globulin Ratio 1.5 (1.1-1.8); Anion Gap 9.6 mEq/L (5-15); Calcium 8.8 mg/dl (8.4-10.2); Carbon Dioxide 30 mmol/L (22.0-30.0); Globulin 2.9 g/dL (1.3-3.2); Glucose 109 mg/dl (74-100); Total Protein,Serum 7.3 g/dl (6.3-8.2)
[2023-07-09 01:49] LABS: Basophils # 0.1 K/mm3 (0-0.2); Basophils % 1.2 % (0.1-2.0); Eosinophils # 0.2 K/mm3 (0.0-0.4); Eosinophils % 1.9 % (0.1-12.0); Hematocrit 43.9 % (37.0-47.0); Hemoglobin 14.6 g/dL (12.2-16.2); Lymphocytes # 3.5 K/mm3 (0.7-4.5); Lymphocytes % 43.2 % (10-50); Mean Corpuscular HGB Conc 33.2 g/dL (31.8-35.4); Mean Corpuscular Volume 90.5 fl (81-99); Mean Platelet Volume 7.9 fl (7.4-10.4); Monocytes # 0.4 K/mm3 (0.1-1.0); Neutrophils % 48.8 % (37.0-80.0); Platelet Count 287 K/mm3 (142-424); Red Blood Count 4.86 M/mm3 (4.20-5.40); Red Cell Distribution Width 14.5 % (11.5-17.5); White Blood Count 8.1 K/mm3 (4.8-10.8)
[2023-07-09 01:49] LABS: Barbiturates Screen,Urine Negative ng/ml (<200); Benzodiazepines Screen,Urine Positive ng/ml (<200)
[2023-07-09 01:50] LABS: Amphetamine/Metha Screen,Urine Negative ng/ml (<1000)
[2023-07-09 01:51] LABS: Cannabinoid Screen,Urine Negative ng/ml (<50); Methadone Screen,Urine Negative ng/ml (<300)
[2023-07-09 01:52] LABS: Cocaine Screen,Urine Negative ng/ml (<300); Squamous Epithelial Cell,Urine Occasional #/hpf (0-5)
[2023-07-09 01:53] LABS: Opiate Screen,Urine Negative ng/ml (<300); Phencyclidine Screen,Urine Negative ng/ml (<25)
[2023-07-09 01:58] LABS: T4 (Thyroxine) 8.5 ug/dl (5.53-11.0)
--- NOTE | 2023-07-09 02:00 | PC.NURSE ---
Pt ready for discharge, unable to get a ride home, will stay in ER till ride comes available.
[2023-07-09 02:12] LABS: Thyroid Stimulating Hormone 1.21 uIU/mL (0.465-4.68)
--- NOTE | 2023-07-09 04:22 | PC.NURSE ---
Pt continues to rest in bed, No distress noted, still awaiting ride for discharge
--- NOTE | 2023-07-09 04:38 | PC.NURSE ---
Pt awake requests us to call dispatch, states Officer Leo told her he would take her home. Called Dispatch per her request
== END 2023-07-09 04:53 | disposition home or self-care (01) ==
PROVIDERS: Emergency Provider Emergency Medicine
DX: F41.0 Panic disorder [episodic paroxysmal anxiety] (principal); F17.210 Nicotine dependence, cigarettes, uncomplicated; F41.9 Anxiety disorder, unspecified; F43.0 Acute stress reaction
CPT/HCPCS: 80053; 80307; 81001; 84436; 84443; 85025; 87086; 96361; 96374; 96375; 99284; 99285; J0131

== ENCOUNTER 2023-08-25 10:01 | Day surgery (SDC) | payer MEDICARE, OTHER, SELFPAY ==
[2023-08-25] VITALS (8 sets, daily range): BP systolic 99–119; BP diastolic 49–70; PULSE 52–96; RESP 15–17; TEMP 36.2–36.4; O2SAT 98–100; BMI 26.5
[2023-08-25] MEDS: SODIUM CHLORIDE 0.9% 10ML FLUSH SYRINGE 10 ML IV (13:33)
[2023-08-25] MEDS: MIDAZOLAM 2MG/2ML VIAL 1 MG IV (13:33)
[2023-08-25] MEDS: LIDOCAINE 1% PF 2ML AMPULE 2 ML IJ (13:39)
[2023-08-25] MEDS: TIMOLOL 0.5% OPTH SOLN 5ML OP (13:39)
[2023-08-25] MEDS: TRI-MOXI 15MG/1MG/ML 1ML OPHTH VIAL 1 ML OP (13:41)
== END 2023-08-25 14:04 | disposition home or self-care (01) ==
PROVIDERS: PCP Internal Medicine Adolescent Medicine; Visit Provider Ophthalmology
PROC: (CPT 66984; principal; 2023-08-25 14:00)
DX: H25.812 Combined forms of age-related cataract, left eye (principal)
CPT/HCPCS: 66984; V2632

== ENCOUNTER 2023-09-08 09:37 | Day surgery (SDC) | payer MEDICARE, OTHER, SELFPAY ==
[2023-09-03 10:33] VITALS: BMI 26.9
[2023-09-08] MEDS: TETRACAINE 0.5% OPTH SOL 15ML OP ×3 (10:00→10:10)
[2023-09-08] MEDS: CYCLOPENTOLATE 2% OPHTH SOLN 2ML BOTTLE OP ×3 (10:00→10:10)
[2023-09-08] MEDS: PHENYLEPHRINE 2.5% OPHTH SOLN 2ML 0.0500000000000000028 ML OP ×3 (10:00→10:10)
[2023-09-08 10:08] VITALS: BP 100/73; PULSE 71; RESP 16; TEMP 36.4; O2SAT 95
[2023-09-08 11:02] VITALS: BP 114/55; PULSE 53; RESP 17; O2SAT 96
[2023-09-08] MEDS: MIDAZOLAM 2MG/2ML VIAL 1 MG IV (11:02)
[2023-09-08 11:07] VITALS: BP 107/58; PULSE 53; RESP 16; O2SAT 96
[2023-09-08] MEDS: TIMOLOL 0.5% OPTH SOLN 5ML OP (11:11)
[2023-09-08] MEDS: LIDOCAINE 1% PF 2ML AMPULE 2 ML IJ (11:11)
[2023-09-08] MEDS: TRI-MOXI 15MG/1MG/ML 1ML OPHTH VIAL 1 ML OP (11:11)
[2023-09-08 11:27] VITALS: BP 104/69; PULSE 65; RESP 16; TEMP 36.1; O2SAT 98
[2023-09-08 11:36] VITALS: BP 104/69; PULSE 65; RESP 16; TEMP 36.1; O2SAT 98
== END 2023-09-08 11:36 | disposition home or self-care (01) ==
PROVIDERS: PCP Internal Medicine Adolescent Medicine; Visit Provider Ophthalmology
PROC: (CPT 66984; principal; 2023-09-08 13:30)
DX: H25.811 Combined forms of age-related cataract, right eye (principal)
CPT/HCPCS: 66984; V2632

== ENCOUNTER 2023-12-03 09:56 | Emergency (ER) | payer MEDICARE, OTHER, SELFPAY ==
[2023-12-03] VITALS (9 sets, daily range): BP systolic 101–125; BP diastolic 53–93; PULSE 53–74; RESP 16–19; TEMP 36.6–36.7; O2SAT 93–99; BMI 24.7; BMI 26.5
[2023-12-03 10:18] LABS: Apearance,Urine Clear (Clear); Bilirubin,Urine Negative (Negative); Blood, Urine 1+ (Negative); Color,Urine Yellow (Yellow); Glucose,Urine (UA) Negative (Negative); Ketones,Urine Negative (Negative); Protein,Urine Negative (Negative); UTC Leukocyte Esterase,Urine 2+ (Negative); UTC Nitrate,Urine Negative (Negative); Urobilinogen,Urine 0.2 EU/dl (0.2)
--- NOTE | 2023-12-03 10:30 | EXP.UTC ---
Discharge Plan Disposition Patient Disposition: Xfer Short-Term Hosp Condition: Good Prescriptions Prescriptions: No Action pravastatin 20 mg tablet 20 mg PO DAILY Ventolin HFA 90 mcg/actuation HFA aerosol inhaler 2 puff INHALATION Q4-6H PRN (Reason: COPD ) fluoxetine 40 mg capsule 40 mg PO DAILY hydroxyzine pamoate 25 mg capsule 25 mg PO TID tizanidine 4 mg capsule 4 mg PO QHS PRN (Reason: muscle spasm ) gabapentin 800 mg tablet 800 mg PO QHS amoxicillin 875 mg tablet 875 mg PO DAILY Referrals Follow up/Referrals: Daren Sow MD [Primary Care Provider] - See instructions Activity Restrictions/Add. Instructions Additional Instructions/Restrictions: You are being transferred to [facility] for evaluation by urology, Dr. Almodovar. Clinical Impressions Clinical Impression: Calculus of urethra Stand Alone Forms Stand Alone Forms: Transfer Record - ED Discharge ED Provider: Sally Bliss [facility] HPI General Chief complaint: Urogenital-Female Stated complaint: pain in private parts Time Seen by Provider: 12/03/23 10:30 History of Present Illness Provider Complaint: Patient states that she is having pain in her private area and feels like something is trying to come out her and states that she can feel it hanging out of her and it is hard and killing her States that it was causing severe pain this morning and she cannot sit, stand or get comfortable in anyway and it is hurting her really bad Related Data Home Medications Medication Instructions Recorded Confirmed albuterol sulfate 90 mcg/actuation 2 puff inhalation Q4-6H PRN COPD 03/04/19 09/08/23 aerosol inhaler (Ventolin HFA) fluoxetine 40 mg capsule 40 mg PO DAILY mood 03/04/19 09/08/23 gabapentin 800 mg tablet 800 mg PO QHS neuropathy 03/04/19 09/08/23 hydroxyzine pamoate 25 mg capsule 25 mg PO TID anxiety 03/04/19 09/08/23 pravastatin 20 mg tablet 20 mg PO DAILY Cholesterol 03/04/19 09/08/23 tizanidine 4 mg capsule 4 mg PO QHS PRN muscle spasm 03/04/19 09/08/23 amoxicillin 875 mg tablet 875 mg PO DAILY 09/03/23 09/08/23 Allergies Allergy/AdvReac Type Severity Reaction Status Date / Time aspirin [ASPIRIN] Allergy Unknown UNKNOWN Verified 09/03/23 10:26 codeine [CODEINE] Allergy Unknown NA-NAUSEA/V Verified 09/03/23 10:26 OMITING cyclobenzaprine Allergy Unknown [place] Verified 09/03/23 10:26 [From FLEXERIL] diclofenac [DICLOFENAC] Allergy Unknown ITCHING Verified 09/03/23 10:26 escitalopram [From LEXAPRO] Allergy Unknown UNKNOWN Verified 09/03/23 10:26 ibuprofen [IBUPROFEN] Allergy Unknown UNKNOWN Verified 09/03/23 10:26 tramadol [TRAMADOL] Allergy Unknown UNKNOWN Verified 09/03/23 10:26 venlafaxine [VENLAFAXINE] Allergy Unknown THROAT Verified 09/03/23 10:26 [facility] Disclaimer: The information contained in this section may have been updated after the patient was seen, as this information can be updated by other users. Medical History Anxiety History of gastroesophageal reflux (GERD) Osteoarthritis Cataract Hyperlipidemia Surgical History H/O: hysterectomy Family History Other No significant family history Social History Smoking Status: Current every day smoker tobacco type: cigarettes packs per day: 1 alcohol intake: never current occupational status: other Travel in the last 8 weeks: None ROS Obtained: Yes All systems reviewed & no additional complaints except as documented and Yes Systems reviewed as appropriate & no additional complaints except as documented Constitutional Constitutional: Reports system reviewed and no additional complaints, except as documented, Reports as per HPI and Denies fever(s) ENT Ears, Nose, Mouth, and Throat: Reports system reviewed and no additional complaints, except as documented and Reports as per HPI Cardiovascular Cardiovascular: Reports system reviewed and no additional complaints, except as documented and Reports as per HPI Respiratory Respiratory: Reports system reviewed and no additional complaints, except as documented and Reports as per HPI Gastrointestinal Gastrointestingal: Reports system reviewed and no additional complaints, except as documented and as per HPI Genitourinary Female Genitourinary: Reports system reviewed and no additional complaints, except as documented, Reports as per HPI and Reports other (feels like something is hanging out of her and hurting her) Physical Exam General General appearance: alert and in no apparent distress Respiratory Respiratory exam: Present normal lung sounds bilaterally; Absent respiratory distress or wheezes Cardiovascular Cardiovascular exam: Present regular rate, normal rhythm and normal heart sounds External exam: Present other (observed what appears to be hard material possibly stone protruding from her urethra opening ) Neurological Exam Neurological exam: Present alert, oriented X3 and normal gait Medical Decision Making Nadeem Inquiry Pt receiving controlled substance: No Nadeem was queried for this patient: No Lab Data Lab results reviewed: Yes I reviewed the patient's lab results. Lab Results 12/03/23 10:17: Urine Color Yellow, Urine Appearance Clear, Urine pH 6.0, Ur Specific [place] 1.010, Urine Protein Negative, Urine Glucose (UA) Negative, Urine Ketones Negative, Urine Blood 1+, Urine Nitrate Negative, Urine Bilirubin Negative, Urine Urobilinogen 0.2, Ur Leukocyte Esterase 2+ A 12/03/23 10:55 12/03/23 10:55 Orders (Tests/Meds): ORDERS Category Date Time Status Urine Culture Stat Micro 12/03/23 10:17 Received Medical Decision Narrative: Spoke with patient and due to location of the stone that is visible at the urethra opening and it not passing recommended transfer to the ED for further work up and evaluation and patient agreed Patient was moved to the ED for further work up and evaluation
--- NOTE | 2023-12-03 10:37 | PC.NURSE ---
pt arrived to er from [facility] via wheelchair
[2023-12-03 10:40] LABS: Microscopic, Urine URINE MICROSCOPIC (MICROSCOPIC)
[2023-12-03 10:44] LABS: Appearance,Urine CLEAR (Clear); Bilirubin,Urine Negative (Negative); Blood, Urine 2+ (Negative); Color,Urine YELLOW (Yellow); Glucose,Urine (UA) Negative (Negative); Ketones,Urine Negative (Negative); Leukocyte Esterase,Urine 1+ (Negative); Nitrate,Urine Negative (Negative); Protein,Urine Negative (Negative); Urobilinogen,Urine 0.2 EU/dl (0.2)
[2023-12-03] MEDS: MORPHINE 4MG/ML SYRINGE 4 MG IV (10:53)
[2023-12-03] MEDS: ONDANSETRON 4MG/2ML VIAL 4 MG IV (10:54)
[2023-12-03] MEDS: LACTATED RINGERS 1000ML 1,000 ML 999 ML IV (10:54)
--- NOTE | 2023-12-03 10:54 | HMH.EDGENADL ---
Discharge Plan Disposition Patient Disposition: Xfer Short-Term Hosp Condition: Good Prescriptions Prescriptions: No Action pravastatin 20 mg tablet 20 mg PO DAILY Ventolin HFA 90 mcg/actuation HFA aerosol inhaler 2 puff INHALATION Q4-6H PRN (Reason: COPD ) fluoxetine 40 mg capsule 40 mg PO DAILY hydroxyzine pamoate 25 mg capsule 25 mg PO TID tizanidine 4 mg capsule 4 mg PO QHS PRN (Reason: muscle spasm ) gabapentin 800 mg tablet 800 mg PO QHS amoxicillin 875 mg tablet 875 mg PO DAILY Referrals Follow up/Referrals: Daren Sow MD [Primary Care Provider] - See instructions Activity Restrictions/Add. Instructions Additional Instructions/Restrictions: You are being transferred to [facility] for evaluation by urology, Dr. Almodovar. Clinical Impressions Clinical Impression: Calculus of urethra Discharge ED Provider: Sally Bliss General Adult HPI General Chief complaint: Urogenital-Female Stated complaint: pain in private parts Time Seen by Provider: 12/03/23 10:30 Mode of Arrival: Wheelchair Source of Information: Patient Limitations: No Limitations Description of Symptoms (Recalled from ER Triage Doc. by RN): PATIENT C/O PAIN TO GENITAL AREA THAT STARTED THIS MORNING. SHE STATES SHE FEELS LIKE SOMETHING TRYING TO COME OUT OF HER. History of Present Illness HPI narrative: This patient is a 63-year-old female with a history of tobacco use disorder, hypertension, hyperlipidemia, and anxiety presenting with concern for vaginal pain. Patient reports that this morning when she woke up to pee, she went to wipe and noted severe pain. She states she was fine yesterday prior to going to bed. She denies any fevers, chills, flank pain, dysuria, or other concerns. She has still been able to urinate. She went to urgent treatment center, at which point she was found to have a large stone protruding from her urethra. They sent her over here for further evaluation and management. I had an interactive discussion with the [facility] provider who was concerned for possible stone that the patient is unable to pass. She denies any history of urinary tract issues and denies any prior urology evaluation. Related Data Home Medications Medication Instructions Recorded Confirmed albuterol sulfate 90 mcg/actuation 2 puff inhalation Q4-6H PRN COPD 03/04/19 09/08/23 aerosol inhaler (Ventolin HFA) fluoxetine 40 mg capsule 40 mg PO DAILY mood 03/04/19 09/08/23 gabapentin 800 mg tablet 800 mg PO QHS neuropathy 03/04/19 09/08/23 hydroxyzine pamoate 25 mg capsule 25 mg PO TID anxiety 03/04/19 09/08/23 pravastatin 20 mg tablet 20 mg PO DAILY Cholesterol 03/04/19 09/08/23 tizanidine 4 mg capsule 4 mg PO QHS PRN muscle spasm 03/04/19 09/08/23 amoxicillin 875 mg tablet 875 mg PO DAILY 09/03/23 09/08/23 Allergies Allergy/AdvReac Type Severity Reaction Status Date / Time aspirin [ASPIRIN] Allergy Unknown UNKNOWN Verified 09/03/23 10:26 codeine [CODEINE] Allergy Unknown NA-NAUSEA/V Verified 09/03/23 10:26 OMITING cyclobenzaprine Allergy Unknown [place] Verified 09/03/23 10:26 [From FLEXERIL] diclofenac [DICLOFENAC] Allergy Unknown ITCHING Verified 09/03/23 10:26 escitalopram [From LEXAPRO] Allergy Unknown UNKNOWN Verified 09/03/23 10:26 ibuprofen [IBUPROFEN] Allergy Unknown UNKNOWN Verified 09/03/23 10:26 tramadol [TRAMADOL] Allergy Unknown UNKNOWN Verified 09/03/23 10:26 venlafaxine [VENLAFAXINE] Allergy Unknown THROAT Verified 09/03/23 10:26 [facility] Disclaimer: The information contained in this section may have been updated after the patient was seen, as this information can be updated by other users. Medical History Anxiety History of gastroesophageal reflux (GERD) Osteoarthritis Cataract Hyperlipidemia Surgical History H/O: hysterectomy Family History Other No significant family history Social History Smoking Status: Current every day smoker tobacco type: cigarettes packs per day: 1 alcohol intake: never current occupational status: other Travel in the last 8 weeks: None ROS Obtained: Yes All systems reviewed & no additional complaints except as documented Physical Exam General General appearance: alert and in no apparent distress Comment: Uncomfortable appearing Head Head exam: atraumatic and normocephalic Eye Eye exam: Present normal appearance, PERRL and EOMI ENT ENT exam: Present normal exam, normal oropharynx, mucous membranes moist and normal external ear exam Neck Neck exam: Present normal inspection, full ROM and trachea midline; Absent tenderness Chest Chest inspection: Present normal inspection and symmetric chest wall rise; Absent tenderness Respiratory Respiratory exam: Present normal lung sounds bilaterally; Absent respiratory distress, wheezes, stridor or accessory muscle use Cardiovascular Cardiovascular exam: Present regular rate and normal rhythm Abdominal Exam Abdominal exam: Present soft; Absent distention, tenderness or guarding Expanded Exam OB exam: Absent vulvar erythema Female Image: 1. Large irregular stone protruding from the urethra with associated TTP. No obvious bleeding/purulence. The majority of the stone is palpable beneath the skin. Extremities Exam Extremities exam: Present normal inspection, full ROM and normal capillary refill; Absent tenderness or edema Back Exam Back exam: Present normal inspection and full ROM; Absent tenderness Neurological Exam Neurological exam: Present alert, oriented X3, CN II-XII intact and normal gait; Absent motor sensory deficit Psychiatric Psychiatric exam: Present normal affect and normal mood Skin Skin exam: Present warm and dry Medical Decision Making Medical Records Medical records reviewed: Yes I reviewed the patient's medical records. Nadeem Inquiry Pt receiving controlled substance: No Vital Signs: 12/03/23 10:20 12/03/23 10:37 Temperature 97.8 F 98.0 F Temperature Source Oral Oral Pulse Rate [Left Brachial] 74 71 Respiratory Rate 19 16 Blood Pressure [Left Arm] 117/74 122/77 Blood Pressure Mean [Left Arm] 88 92 Blood Pressure Source [Left Arm] Automatic Cuff Automatic Cuff Blood Pressure Position [Left Arm] Sitting Sitting 02 Sat by Pulse Oximetry 98 97 Oxygen Delivery Method Room Air Room Air Lab Data Lab results reviewed: Yes I reviewed the patient's lab results. Lab Results 12/03/23 10:17: Urine Color Yellow, Urine Appearance Clear, Urine pH 6.0, Ur Specific [place] 1.010, Urine Protein Negative, Urine Glucose (UA) Negative, Urine Ketones Negative, Urine Blood 1+, Urine Nitrate Negative, Urine Bilirubin Negative, Urine Urobilinogen 0.2, Ur Leukocyte Esterase 2+ A 12/03/23 10:55: WBC 9.0, RBC 4.56, Hgb 13.3, Hct 42.1, MCV 92.3, MCH 29.3, MCHC 31.7 L, RDW 14.0, Plt Count 286, MPV 7.7, Neut % (Auto) 59.3, Lymph % (Auto) 32.7, [place] % (Auto) 4.0, Eos % (Auto) 2.6, Baso % (Auto) 1.3, Neut # (Auto) 5.4, Lymph # (Auto) 3.0, [place] # (Auto) 0.4, Eos # (Auto) 0.2, Baso # (Auto) 0.1, Sodium 135 L, Potassium 3.9, Chloride 100, Carbon Dioxide 30, Anion Gap 8.9, BUN 16, Creatinine 0.90, Estimated Creat Clear 58, Estimated GFR 63, Est GFR ( Amer) 76, Glucose 109 H, Calcium 8.9, Total Bilirubin 0.4, AST 26, ALT 15, Alkaline Phosphatase 104, Total Protein 6.7, Albumin 4.0, Globulin 2.7, Albumin/Globulin Ratio 1.5 12/03/23 : Urine Color Yellow, Urine Appearance Clear, Urine pH 6.0, Ur Specific [place] 1.010, Urine Protein Negative, Urine Glucose (UA) Negative, Urine Ketones Negative, Urine Blood 2+, Urine Nitrate Negative, Urine Bilirubin Negative, Urine Urobilinogen 0.2, Ur Leukocyte Esterase 1+ A, Urine RBC 5-10, Urine WBC 3-5, Ur Squamous Epith Cells Occasional, Urine Bacteria Trace 12/03/23 10:55 12/03/23 10:55 Orders (Tests/Meds): ED MEDICATIONS Discontinued Medications Generic Name Dose Route Start Last Admin Trade Name Freq PRN Reason Stop Dose Admin Cocaine HCl 1 ml 12/03/23 10:37 12/03/23 11:01 Cocaine 4% Topical Soln 4ml Bottle TP 12/03/23 10:38 Not Given ONCE ONE Epinephrine HCl 1 mg 12/03/23 10:37 12/03/23 11:01 Epinephrine 1 Mg/Ml Ampul TP 12/03/23 10:38 Not Given ONCE ONE Lactated Ringer's 1,000 mls @ 999 mls/hr 12/03/23 10:38 12/03/23 10:54 Lactated Ringer's 1000 Ml Bag IV 12/03/23 11:38 999 mls/hr .Q1H1M ONE Administration Lidocaine HCl 1 ml 12/03/23 10:37 12/03/23 11:00 Lidocaine 2% Urojet 10ml TP 12/03/23 10:38 1 ml ONCE ONE Administration Morphine Sulfate 4 mg 12/03/23 10:37 12/03/23 10:53 Morphine 4mg/Ml Syringe IV 12/03/23 10:38 4 mg ONCE ONE Administration Ondansetron HCl 4 mg 12/03/23 10:37 12/03/23 10:54 Ondansetron 4mg/2ml Vial IV 12/03/23 10:38 4 mg ONCE ONE Administration ORDERS Category Date Time Status Complete Blood Count Auto Diff Stat Lab 12/03/23 10:55 Completed Comprehensive Metabolic Panel Stat Lab 12/03/23 10:55 Completed Urinalysis and Microscopic Stat Lab 12/03/23 Completed Urine Culture Stat Micro 12/03/23 10:17 Received Medical Decision Narrative: In summary, this patient is a 63-year-old female presenting to the Emergency Department for evaluation of urethral pain. Differential diagnoses considered include but are not limited to foreign body, stone, urethral stricture, bladder outflow obstruction, OBI, UTI. Ruling out the most morbid conditions drove assessment. On exam, the patient is uncomfortable appearing with a stone protruding from her urethra. The majority of the stone is still palpable beneath the surface of the skin and has not passed. I do not feel that I could safely remove this on my own given the size of the stone. I feel that this would risk significant urethral injury to the patient. I notified her of this. She is declining transfer anywhere, as she states she does not have transportation to come and pick her up. I advised that we would be happy to transport her somewhere with urology should to be excepted somewhere for evaluation, but she states that she would not have anyone to come get her so she does not want to be transferred. I asked if she could at least let me call over to urology at nearby facilities to get their opinion. She is agreeable to this. Workup included CBC, CMP, urinalysis, urine culture. Topical Uro-Jet was applied and IV morphine and Zofran were administered as well as a bolus of IV fluids. I had an interactive discussion with Dr. Almodovar at [facility] who advised that he would be happy to see the patient in the OR right away. He wants transfer expedited as quickly as possible. Patient is agreeable to this and states that she did find a ride to pick her up from [facility]. She understands that she likely will be discharged today unless there is some sort of issue. EMS transport was arranged given the patient's pain and acuity of condition. Patient was transported in stable condition. Critical Care Critical Care Time Critical Care Time: No
--- NOTE | 2023-12-03 10:57 | PC.NURSE ---
called [facility] about transferring this pt per Dr Bliss, [facility] advised that they would call us back.
[2023-12-03] MEDS: LIDOCAINE 2% UROJET 10ML TP (11:00)
[2023-12-03 11:02] LABS: Basophils # 0.1 K/mm3 (0-0.2); Basophils % 1.3 % (0.1-2.0); Eosinophils # 0.2 K/mm3 (0.0-0.4); Eosinophils % 2.6 % (0.1-12.0); Hematocrit 42.1 % (37.0-47.0); Hemoglobin 13.3 g/dL (12.2-16.2); Lymphocytes % 32.7 % (10-50); Mean Corpuscular HGB Conc 31.7 g/dL (31.8-35.4); Mean Corpuscular Hemoglobin 29.3 pg (27.0-31.2); Mean Corpuscular Volume 92.3 fl (81-99); Mean Platelet Volume 7.7 fl (7.4-10.4); Monocytes # 0.4 K/mm3 (0.1-1.0); Neutrophils # 5.4 K/mm3 (1.8-7.8); Neutrophils % 59.3 % (37.0-80.0); Platelet Count 286 K/mm3 (142-424); Red Blood Count 4.56 M/mm3 (4.20-5.40)
--- NOTE | 2023-12-03 11:07 | PC.NURSE ---
[facility] CALLED AND I HELD ON HOLD WHILE TRYING TO REACH BUT UNFORTUNATELY NO ANSWER VOICEMAIL WAS LEFT, STATED ONCE HE RETURNED CALL THEY WOULD CALL BACK TO SPEAK WITH
[2023-12-03 11:12] LABS: Alanine Aminotransferase 15 U/L (12-78); Albumin/Globulin Ratio 1.5 (1.1-1.8); Alkaline Phosphatase 104 U/L (38-126); Anion Gap 8.9 mEq/L (5-15); Aspartate Amino Transferase 26 U/L (14-36); Bilirubin,Total 0.4 mg/dl (0.2-1.3); Blood Urea Nitrogen 16 mg/dl (7-17); Calcium 8.9 mg/dl (8.4-10.2); Carbon Dioxide 30 mmol/L (22.0-30.0); Chloride 100 mmol/L (98-107); Creatinine Clearance Estimated 58 mL/min (50-200); Estimated Glomerular Filt Rate 63 ml/min (>60); GFR (African American) 76 ML/MIN (>60); Globulin 2.7 g/dL (1.3-3.2); Glucose 109 mg/dl (74-100); Potassium 3.9 mmoL/L (3.5-5.1); Sodium 135 mmol/L (136-145); Total Protein,Serum 6.7 g/dl (6.3-8.2)
[2023-12-03 11:22] LABS: Bacteria,Urine Trace /lpf; Squamous Epithelial Cell,Urine Occasional #/hpf (0-5)
--- NOTE | 2023-12-03 11:31 | PC.NURSE ---
FACE SHEET BEING FAXED TO [facility] [phone]
--- NOTE | 2023-12-03 11:55 | PC.NURSE ---
FIRST FAX TO [facility] NO RESPONSE RE FAXED FACESHEET AT THIS TIME
--- NOTE | 2023-12-03 13:30 | PC.NURSE ---
talked with EMS, truck is still unavailable at this time for transport
--- NOTE | 2023-12-03 13:33 | PC.NURSE ---
called [facility] per Dr Bliss to let them know that we were still awaiting EMS to show up to transfer to [facility].
--- NOTE | 2023-12-03 14:41 | PC.NURSE ---
CALLED [facility] FOR STATUS ON TRANSFER PT TO [facility] STATED THAT [facility] HAD TO SWITCH OUT TRUCKS AND IT BE OUT 10-15 MINUTES ON ETA
--- NOTE | 2023-12-03 14:47 | PC.NURSE ---
[place] calls from [facility] for update on pt POC. update told that EMS is switching out their trucks and should be on their way to pick the pt up soon. informed [place] to call back with any other concerns.
--- NOTE | 2023-12-03 14:50 | PC.NURSE ---
UPDATED PT ON ETA OF AMBULANCE AT THIS TIME
== END 2023-12-03 15:10 | disposition short-term general hospital (02) ==
LOC: UTC 10:03 → ER 10:36
PROVIDERS: Nurse Practitioner; Emergency Provider Emergency Medicine; PCP Internal Medicine Adolescent Medicine
DX: N20.1 Calculus of ureter (principal); B96.89 Other specified bacterial agents as the cause of diseases classified elsewhere; F17.210 Nicotine dependence, cigarettes, uncomplicated; I10 Essential (primary) hypertension; E78.5 Hyperlipidemia, unspecified
CPT/HCPCS: 80053; 81001; 81003; 85025; 87086; 96361; 96374; 96375; 99285; J2405

== ENCOUNTER 2024-02-08 13:15 | Outpatient (CLI) | payer MEDICARE, OTHER, SELFPAY ==
--- NOTE | 2024-02-08 13:19 | XR_ITS ---
FINAL REPORT CLINICAL HISTORY: Foot Pain COMPARISON: None FINDINGS: RIGHT FOOT: Three views show no evidence of acute displaced fracture or dislocation of the visualized bony architecture. Mild degenerative change is present. IMPRESSION: Mild degenerative change, without acute bony abnormality. Reviewed, Interpreted and Dictated by Yaneth Mcfarland MD Transcribed by Nia Carbajal Authenticated and [facility]
--- NOTE | 2024-02-08 13:19 | XR_ITS ---
FINAL REPORT CLINICAL HISTORY: Foot Pain COMPARISON: None FINDINGS: LEFT FOOT: Three views show no evidence of acute displaced fracture or dislocation of the visualized bony architecture. There is mild degenerative change noted in the left foot. IMPRESSION: Mild degenerative change without acute bony abnormality. Reviewed, Interpreted and Dictated by Yaneth Mcfarland MD Transcribed by Nia Carbajal Authenticated and [facility]
== END 2024-02-08 23:59 | disposition home or self-care (01) ==
PROVIDERS: PCP Internal Medicine Adolescent Medicine; Visit Provider Podiatrist
DX: M79.671 Pain in right foot (principal); M79.672 Pain in left foot
CPT/HCPCS: 73630